=== PATIENT | male | born 1940 | race Caucasian/White ===

== ENCOUNTER 2021-10-17 11:58 | Emergency (ER) | payer MEDICARE, OTHER ==
[2021-10-17] MEDS: Albuterol/Ipratropium 3.0-0.5 MG/3 ML Neb Soln NEB ONE (12:23)
[2021-10-17 13:10] LABS: ESTIMATED GFR 31 mL/min (>60)
[2021-10-17 13:31] LABS: CORONAVIRUS COVID-19 NAA POSITIVE (NEGATIVE)
[2021-10-17] MEDS: Sodium Chloride 0.9% 1,000 ML IV ONE (15:01)
[2021-10-17] MEDS: methylPREDNISolone Sodium Succinate 125 MG/2 ML SDV IVPUSH ONE (15:01)
[2021-10-17] MEDS: Sodium Chloride 0.9% 10 ML Syringe FLUSH PRN (15:04)
[2021-10-17] MEDS ORDERED: diphenhydrAMINE 50 MG/ML SDV IVPUSH PRN (15:20)
[2021-10-17] MEDS ORDERED: methylPREDNISolone Sodium Succinate 125 MG/2 ML SDV IVPUSH PRN (15:20)
[2021-10-17] MEDS ORDERED: Famotidine 20 MG/2 ML SDV IVPUSH PRN (15:20)
[2021-10-17] MEDS ORDERED: EPINEPHrine 1 MG/ML SDV IM PRN (15:20)
[2021-10-17] MEDS ORDERED: Sodium Chloride 0.9% 10 ML Syringe FLUSH SCH (15:30)
== END 2021-10-17 16:10 | disposition home or self-care (01) ==
LOC: JD.ED 11:58
DX: U07.1 COVID-19 (principal); N28.9 Disorder of kidney and ureter, unspecified; R09.02 Hypoxemia; Z20.822 Contact with and (suspected) exposure to COVID-19
CPT/HCPCS: 0241U; 36415; 71045; 80053; 83605; 83735; 84484; 85025; 86140; 93005; 94640; 96374; 99285; J2930; J3490; J7030; M0222; Q0222; J7620-GY

== ENCOUNTER 2021-10-18 02:07 | Emergency (ER) | payer MEDICARE, OTHER ==
[2021-10-18] MEDS ORDERED: EPINEPHrine 1:10,000 1 MG/10 ML Syringe ONE (02:30)
[2021-10-18 03:06] LABS: ESTIMATED GFR 21 mL/min (>60)
[2021-10-18] MEDS ORDERED: Sodium Bicarbonate 8.4% 50 MEQ/50 ML Syringe IVPUSH ONE (03:07)
[2021-10-18] MEDS ORDERED: Norepinephrine 4 MG in Dextrose 5% in Water 246 ML IV SCH ×2 (03:15)
[2021-10-18] MEDS ORDERED: Sodium Chloride 0.9% 1,000 ML ONE (03:27)
[2021-10-18] MEDS ORDERED: Sodium Chloride 0.9% 1,000 ML IV ONE (03:34)
[2021-10-18] MEDS ORDERED: fentaNYL 100 MCG/2 ML SDV ONE (03:58)
[2021-10-18] MEDS ORDERED: fentaNYL 100 MCG/2 ML SDV IVPUSH ONE (04:12)
== END 2021-10-18 04:30 ==
LOC: JD.ED 02:07
DX: U07.1 COVID-19 (principal); R09.2 Respiratory arrest; I10 Essential (primary) hypertension; E11.9 Type 2 diabetes mellitus without complications; Z86.16 Personal history of COVID-19
CPT/HCPCS: 31500; 36415; 36600; 43752; 51702; 71045; 80053; 82803; 83605; 84484; 85007; 85027; 85610; 85730; 92950; 96365; 96375; 99285; J0171; J3010; J3360; J7030; J7060; 93010; 99291